=== PATIENT | female | born 1995 | race Caucasian/White ===

== ENCOUNTER → 2023-04-26 10:09 | Outpatient (CLI) | payer OTHER, SELFPAY ==
[2023-04-26 10:55] LABS: COVID-19 CEPHEID 4-PLEX PCR Negative (Negative); Influenza A - CEPHEID Flu A POSITIVE (NEGATIVE); Influenza B - CEPHEID Flu B NEGATIVE (NEGATIVE); Respiratory Syncytial Virus Negative (Negative)
== END ==
PROVIDERS: Visit Provider Physician Assistant
DX: R05.1 Acute cough (principal)
CPT/HCPCS: 0241U

== ENCOUNTER → 2024-01-12 17:18 | Outpatient (CLI) | payer OTHER, SELFPAY ==
--- NOTE | 2024-01-12 17:20 | DI.RAD.S_ITS ---
PROCEDURE: XR ANKLE LT MIN 3V INDICATIONS: Left ankle pain after rolling it 3 weeks ago TECHNIQUE: 3 views of the ankle were acquired. COMPARISON: None. FINDINGS: Bones: No fractures or dislocations. Ankle mortise is normally aligned. No suspicious bony lesions. Soft tissues: Moderate tibiotalar joint effusion. Achilles tendon appears normal. IMPRESSION: No acute bony abnormality. Moderate joint effusion. Internal derangement not excluded. Dictated by: Ezra Bridges M.D. on 01/12/2024 at 17:46 Approved by: Ezra Bridges M.D. on 01/12/2024 at 17:46
== END ==
LOC: RAD 17:20
PROVIDERS: Referring Provider Physician Assistant Medical; Visit Provider Physician Assistant Medical
DX: M25.472 Effusion, left ankle (principal); M25.572 Pain in left ankle and joints of left foot
CPT/HCPCS: 73610

== ENCOUNTER 2024-02-22 11:40 | Emergency (ER) | payer OTHER, SELFPAY ==
[2024-02-22 12:11] VITALS: BP 120/83; PULSE 105; RESP 18; TEMP 37.2; O2SAT 98; BMI 19.4
--- NOTE | 2024-02-22 13:37 | ED_ITS ---
HPI - Ear Problem <Renu Mccall PA-C - Last Filed: 02/22/24 16:48> General Chief complaint: Ear Stated complaint: R Ear pain Time Seen by Provider: 02/22/24 13:36 Source: patient Mode of arrival: Ambulatory History of Present Illness HPI Narrative: Ms. Crow is a pleasant 28-year-old female with no reported past medical history who presents to the emergency department for right ear worsening pain x3 days. Has been contributed to the history. Patient had a cold last week and reports she developed right ear pain and drainage. On Tuesday she was seen at the walk-in clinic and was diagnosed with right otitis externa and was treated with ofloxacin drops. Patient states her symptoms have only worsened since then and she now has pain behind the right ear and a right-sided headache. She reports having decreased appetite and overall not feeling well. Denies fever, chills, cough, sore throat. She has been using the ear drops as prescribed. No history of issues with the right ear. Related Data Previous Rx's Medication Instructions Recorded ofloxacin 0.3 % ear drops 10 drp EAR-RIGHT ONCE 7 days #5 mL 02/20/24 amoxicillin 875 mg-potassium 1 tab PO Q12H 10 days #20 tabs 02/22/24 clavulanate 125 mg tablet Allergies Allergy/AdvReac Type Severity Reaction Status Date / Time No Known Drug Allergies Allergy Verified 02/22/24 12:15 Review of Systems <Renu Mccall PA-C - Last Filed: 02/22/24 16:48> Review of Systems ROS Unobtainable: All systems reviewed & are unremarkable except as noted in HPI and below Patient History <Renu Mccall PA-C - Last Filed: 02/22/24 16:48> Social History Smoking Status: Never smoker Smoking Status: Never smoker Substance Use Type: does not use Exam <Rneu Mccall PA-C - Last Filed: 02/22/24 16:48> Narrative Exam Narrative: GENERAL: 28 year old patient appears stated age. Well-developed patient, in no acute distress. HEAD: Atraumatic. Normocephalic. EYES: Extraocular motions intact. No scleral icterus. No injection or drainage. ENT: Right TM extremely erythematous, thickened. No obvious TM perforation. Mild erythema of right canal. Tenderness to palpation of right mastoid with no overlying erythema or skin changes. Left TM and ear within normal limits. Nose without bleeding, purulent drainage. Throat without erythema, tonsillar hypertrophy or exudate. Airway patent. NECK: Trachea midline. Cervical ROM intact. CARDIOVASCULAR: Regular rate and rhythm. RESPIRATORY: ?Nonlabored respirations. ?Speaking in clear, full sentences. EXTREMITIES: No edema or joint tenderness. BACK: Nontender without deformity or crepitance. No flank tenderness. NEURO: AOx3. ?Clear speech. ?Moves all 4 extremities appropriately. SKIN: No rash or erythema of visible areas Initial Vital Signs Initial Vital Signs: Vital Signs Temperature 99.0 F 02/22/24 12:11 Pulse Rate 105 H 02/22/24 12:11 Respiratory Rate 18 02/22/24 12:11 Blood Pressure 120/83 02/22/24 12:11 Pulse Oximetry 98 02/22/24 12:11 Oxygen Delivery Method Room Air 02/22/24 12:11 <Sam Crawley MD - Last Filed: 02/26/24 14:59> Initial Vital Signs Initial Vital Signs: Vital Signs Temperature 99.0 F 02/22/24 12:11 Pulse Rate 105 H 02/22/24 12:11 Respiratory Rate 18 02/22/24 12:11 Blood Pressure 120/83 02/22/24 12:11 Pulse Oximetry 98 02/22/24 12:11 Oxygen Delivery Method Room Air 02/22/24 12:11 Course <Renu Mccall PA-C - Last Filed: 02/22/24 16:48> Orders Ordered: Discontinued Medications Acetaminophen (Acetaminophen 325 Mg Tablet) 975 mg PO NOW ONE Stop: 02/22/24 13:51 Last Admin: 02/22/24 14:15 Dose: 975 mg Documented By: JOSEPHINE Ampicillin Sodium/Sulbactam (Sodium 3 gm/ Sodium Chloride) 100 mls @ 200 mls/hr IV NOW ONE Stop: 02/22/24 15:48 Last Infusion: 02/22/24 16:39 Dose: Infused Documented By: Admin: 02/22/24 16:05 Dose: 200 mls/hr Documented By: JOSEPHINE Sodium Chloride (Normal Saline 0.9%) 500 mls @ 500 mls/hr IV BOLUS ONE Stop: 02/22/24 16:46 Last Infusion: 02/22/24 16:39 Dose: Infused Documented By: Admin: 02/22/24 16:05 Dose: 500 mls/hr Documented By: JOSEPHINE Consultations Consultation #1: Discussed case with ENT on-call Dr. Mullins. Discussed the patient's physical exam and her CT and blood work findings. Dr. Mullins also independently reviewed the patient's imaging. Reports that pockets of air are present and he does not see any bony erosions which are reassuring. It is evident that she has a middle ear infection. He recommends 1 time dose of IV Unasyn and then we will place the patient on Augmentin b.i.d. times 10 days and have her follow up in the clinic with Dr. Mullins. Very strict return precautions were discussed. Time: 15:35 Vital Signs Vital signs: Vital Signs - 8 hr 02/22/24 12:11 02/22/24 15:47 Temperature 99.0 F Pulse Rate 105 H 104 H Respiratory Rate 18 20 Blood Pressure 120/83 108/67 Pulse Oximetry 98 100 Oxygen Delivery Method Room Air Room Air <Sam Crawley MD - Last Filed: 02/26/24 14:59> Orders Ordered: Discontinued Medications Acetaminophen (Acetaminophen 325 Mg Tablet) 975 mg PO NOW ONE Stop: 02/22/24 13:51 Last Admin: 02/22/24 14:15 Dose: 975 mg Documented By: JOSEPHINE Ampicillin Sodium/Sulbactam (Sodium 3 gm/ Sodium Chloride) 100 mls @ 200 mls/hr IV NOW ONE Stop: 02/22/24 15:48 Last Infusion: 02/22/24 16:39 Dose: Infused Documented By: Admin: 02/22/24 16:05 Dose: 200 mls/hr Documented By: JOSEPHINE Sodium Chloride (Normal Saline 0.9%) 500 mls @ 500 mls/hr IV BOLUS ONE Stop: 02/22/24 16:46 Last Infusion: 02/22/24 16:39 Dose: Infused Documented By: Admin: 02/22/24 16:05 Dose: 500 mls/hr Documented By: JOSEPHINE Vital Signs Vital signs: Vital Signs - 8 hr 02/22/24 12:11 02/22/24 15:47 Temperature 99.0 F Pulse Rate 105 H 104 H Respiratory Rate 18 20 Blood Pressure 120/83 108/67 Pulse Oximetry 98 100 Oxygen Delivery Method Room Air Room Air Medical Decision Making <Renu Mccall PA-C - Last Filed: 02/22/24 16:48> Medical Records Medical records reviewed: Yes I reviewed the patient's medical records. Medical records narrative: 02/20/2024 walk-in clinic visit diagnosed with right otitis media, prescribed ofloxacin drops. Lab Data 02/22/24 14:24 02/22/24 14:24 Labs: Lab Results 02/22/24 Range/Units 14:24 WBC 13.2 H (4.5-11.0) X10^3/uL RBC 5.34 H (4.0-5.2) X10^6/uL Hgb 15.1 (12.0-16.0) g/dL Hct 44.8 (36-46) % MCV 83.9 (80-100) fL MCH 28.3 (26-34) PG MCHC 33.8 (30-36) % RDW 12.5 (11.6-14.8) % Plt Count 348 (150-400) X10^3/uL Neut % (Auto) 80.9 H (50-75) % Lymph % (Auto) 10.2 L (25-40) % [place] % (Auto) 8.3 (3-14) % Eos % (Auto) 0.2 L (2-4) % Baso % (Auto) 0.4 (0-2) % Neut # (Auto) 09037 H (6971-6618) /uL Lymph # (Auto) 1300 (9254-8729) /uL [place] # (Auto) 1100 H (0-900) /uL Eos # (Auto) 0 (0-450) /uL Baso # (Auto) 0 (0-100) /uL Sodium 139 (137-145) mmol/L Potassium 4.0 (3.4-5.1) mmol/L Chloride 101 (98-107) mmol/L Carbon Dioxide 26 (22-32) mmol/L BUN 9 (7-17) mg/dL Creatinine 0.71 (0.52-1.04) mg/dL Estimated GFR > 60 (>60) mL/min BUN/Creatinine Ratio 12.7 (6-22) Glucose 102 H (70-100) mg/dL Calcium 10.0 (8.4-10.2) mg/dL Total Bilirubin 0.8 (0.2-1.3) mg/dL AST 24 (14-36) IU/L ALT 19 (<35) IU/L Alkaline Phosphatase 71 (38-126) U/L Total Protein 8.3 H (6.3-8.2) g/dL Albumin 4.8 (3.5-5.0) g/dL Globulin 3.5 (1.7-4.1) g/dL Albumin/Globulin Ratio 1.4 (1.0-2.8) Point of Care Testing Test Results Negative Point of care testing: Point of Care Testing Test Results Negative Imaging Data Head/Mastoid CT: Radiologist's Impression: PROCEDURE: CT MASTOID TEMPORAL INDICATIONS: R mastoid tenderness with AOM COMPARISON: None. TECHNIQUE: Noncontrast 0.6 mm thick axial sections acquired through the temporal bones, with coronal reformats FINDINGS: Image quality: Excellent. RIGHT: External auditory canal: Canal has a normal appearance. Middle ear: There is moderate abnormal fluid within the right middle ear cavity. The tympanic membrane appears retracted. No definite erosion of the left middle ear ossicles can be seen. Inner ear: Inner ear is normally formed and appears unremarkable. Facial nerve appears normal throughout is course. Mastoids: There is at least moderate abnormal fluid within the right mastoid air cells. LEFT: External auditory canal: Canal has a normal appearance. Middle ear: The middle ear structures, including the ossicles and tympanic membrane, appear normal. No abnormal fluid or soft tissue density. Inner ear: Inner ear is normally formed and appears unremarkable. Facial nerve appears normal throughout its course. Mastoids: Mastoid air cells are clear. MISCELLANEOUS: Visualized surrounding bones appear unremarkable. Visualized intracranial structures, including the cerebellopontine angle cisterns, appear normal. IMPRESSION: Moderate abnormal fluid seen within the right mastoid air cells. Abnormal fluid within the right middle ear cavity, with associated retraction of the right tympanic membrane. MDM Narrative Medical decision making narrative: Otherwise healthy 28-year-old female presents to the emergency department for continuing right ear pain after being diagnosed with and treated for right otitis externa on Tuesday. Physical exam reveals an opacified and erythematous right TM consistent with acute otitis media. She also has tenderness to palpation of the right mastoid. Differential diagnosis includes but is not limited to mastoiditis, acute otitis media, sinusitis, acute otitis externa, referred pain, tension headache, etc.. After shared decision-making with the patient, we will obtain CT mastoid without IV contrast in addition to CBC and CMP. We will treat pain with Tylenol. We will obtain baseline test. Patient states she is currently trying to get . Workup reveals head/mastoid CT revealing moderate abnormal fluid seen within the right mastoid air cells. She also has abnormal fluid within the right middle ear cavity with associated retraction of the right tympanic membrane. Labs reveal elevated WBC count of 13.2. Normal renal function. No electrolyte abnormalities. Case discussed with ENT on-call. Patient's symptoms and CT scan seem most consistent with an acute otitis media. We will treat with 1 dose of IV Unasyn and send the patient home on oral Augmentin as discussed with ENT Dr. Mullins. Advised she continue her ofloxacin drops. If patient has any worsening of symptoms or does not improve, she needs to return to the ER immediately. Provided her with ENT follow up. Advised supportive care, pain control Tylenol Motrin, all questions answered, pt Non-toxic, patient stable for discharge home. <Sam Crawley MD - Last Filed: 02/26/24 14:59> Lab Data Labs: Lab Results 02/22/24 Range/Units 14:24 WBC 13.2 H (4.5-11.0) X10^3/uL RBC 5.34 H (4.0-5.2) X10^6/uL Hgb 15.1 (12.0-16.0) g/dL Hct 44.8 (36-46) % MCV 83.9 (80-100) fL MCH 28.3 (26-34) PG MCHC 33.8 (30-36) % RDW 12.5 (11.6-14.8) % Plt Count 348 (150-400) X10^3/uL Neut % (Auto) 80.9 H (50-75) % Lymph % (Auto) 10.2 L (25-40) % [place] % (Auto) 8.3 (3-14) % Eos % (Auto) 0.2 L (2-4) % Baso % (Auto) 0.4 (0-2) % Neut # (Auto) 21195 H (9010-8950) /uL Lymph # (Auto) 1300 (5802-8568) /uL [place] # (Auto) 1100 H (0-900) /uL Eos # (Auto) 0 (0-450) /uL Baso # (Auto) 0 (0-100) /uL Sodium 139 (137-145) mmol/L Potassium 4.0 (3.4-5.1) mmol/L Chloride 101 (98-107) mmol/L Carbon Dioxide 26 (22-32) mmol/L BUN 9 (7-17) mg/dL Creatinine 0.71 (0.52-1.04) mg/dL Estimated GFR > 60 (>60) mL/min BUN/Creatinine Ratio 12.7 (6-22) Glucose 102 H (70-100) mg/dL Calcium 10.0 (8.4-10.2) mg/dL Total Bilirubin 0.8 (0.2-1.3) mg/dL AST 24 (14-36) IU/L ALT 19 (<35) IU/L Alkaline Phosphatase 71 (38-126) U/L Total Protein 8.3 H (6.3-8.2) g/dL Albumin 4.8 (3.5-5.0) g/dL Globulin 3.5 (1.7-4.1) g/dL Albumin/Globulin Ratio 1.4 (1.0-2.8) Point of Care Testing Test Results Negative Point of care testing: Point of Care Testing Test Results Negative Discharge Plan Departure Patient Disposition: Home Clinical Impression: Acute pain of right ear Otitis media Qualifiers: Otitis media type: unspecified Chronicity: acute Qualified Code(s): H66.90 - Otitis media, unspecified, unspecified ear Instructions: DI for Otitis Media (Middle Ear Infection)-Child Activity Restrictions/Additional Instructions: Today you were evaluated for right ear pain and found to have a right ear infection. We obtained a CT scan which shows some fluid in your mastoid bone. You were given a dose of IV antibiotics and you were also prescribed 10 days of oral antibiotics. Today I discussed her case with ears Nose Throat specialist Dr. Mullins. Please call to schedule an appointment with Dr. Renae Mullins for follow up at [facility] ENT: [phone]. If you do not have any improvement in symptoms within the next 1-2 days, or you develop any worsening of symptoms, return to the ER immediately. Please rest, hydrate, use Tylenol and ibuprofen together or alternating for pain. Continue using your ofloxacin eardrops. Please follow up with your primary care doctor within the next 2-3 days. Return to the emergency department for any new or worsening symptoms, or any other concerns. Thank you for letting me participate in your care, Renu Mccall PA-C Prescriptions: New amoxicillin-pot clavulanate 875-125 mg tablet 1 tab PO Q12H 10 Days Qty: 20 0RF No Action ofloxacin 0.3 % drops 10 drp EAR-RIGHT ONCE 7 Days Qty: 5 0RF Referrals: Drew Mullins MD [Physician] - (ER follow-up // R ear infection) Stand Alone Forms: Patient Portal/API/Survey, Work Release Note ED Sign-out <Sam Crawley MD - Last Filed: 02/26/24 14:59> Cosign ED Attending Costienature Attestation: I was immediately available in the department for consultation. ?This documentation has been reviewed and I agree with assessment and plan. Supervised by Sam Crawley MD
--- NOTE | 2024-02-22 13:49 | DI.CT.S_ITS ---
PROCEDURE: CT MASTOID TEMPORAL INDICATIONS: R mastoid tenderness with AOM COMPARISON: None. TECHNIQUE: Noncontrast 0.6 mm thick axial sections acquired through the temporal bones, with coronal reformats FINDINGS: Image quality: Excellent. RIGHT: External auditory canal: Canal has a normal appearance. Middle ear: There is moderate abnormal fluid within the right middle ear cavity. The tympanic membrane appears retracted. No definite erosion of the left middle ear ossicles can be seen. Inner ear: Inner ear is normally formed and appears unremarkable. Facial nerve appears normal throughout is course. Mastoids: There is at least moderate abnormal fluid within the right mastoid air cells. LEFT: External auditory canal: Canal has a normal appearance. Middle ear: The middle ear structures, including the ossicles and tympanic membrane, appear normal. No abnormal fluid or soft tissue density. Inner ear: Inner ear is normally formed and appears unremarkable. Facial nerve appears normal throughout its course. Mastoids: Mastoid air cells are clear. MISCELLANEOUS: Visualized surrounding bones appear unremarkable. Visualized intracranial structures, including the cerebellopontine angle cisterns, appear normal. IMPRESSION: Moderate abnormal fluid seen within the right mastoid air cells. Abnormal fluid within the right middle ear cavity, with associated retraction of the right tympanic membrane. Dictated by: Sundar Holland M.D. on 02/22/2024 at 13:39 Approved by: Sundar Holland M.D. on 02/22/2024 at 13:41
[2024-02-22] MEDS: ACETAMINOPHEN 325 MG TABLET 975 MG PO (14:15)
[2024-02-22 14:35] LABS: Add Manual Diff / Slide Review NO; Basophils Absolute Auto 0 /uL (0-100); Basophils Percent Auto 0.4 % (0-2); Eosinophils Absolute Auto 0 /uL (0-450); Eosinophils Percent Auto 0.2 % (2-4); Hematocrit 44.8 % (36-46); Hemoglobin 15.1 g/dL (12.0-16.0); Lymphocytes Absolute Auto 1300 /uL (1100-4500); Lymphocytes Percent Auto 10.2 % (25-40); Mean Corpuscular HGB Conc 33.8 % (30-36); Mean Corpuscular Hemoglobin 28.3 PG (26-34); Mean Corpuscular Volume 83.9 fL (80-100); Monocytes Absolute Auto 1100 /uL (0-900); Monocytes Percent Auto 8.3 % (3-14); Neutrophils Absolute Auto 10700 /uL (1500-7000); Neutrophils Percent Auto 80.9 % (50-75); Platelet Count 348 X10^3/uL (150-400); Red Blood Cell Count 5.34 X10^6/uL (4.0-5.2); Red Cell Distribution Width 12.5 % (11.6-14.8); White Blood Cell Count 13.2 X10^3/uL (4.5-11.0)
[2024-02-22 14:49] LABS: Alanine Aminotransferase 19 IU/L (<35); Albumin 4.8 g/dL (3.5-5.0); Albumin Globulin Ratio 1.4 (1.0-2.8); Alkaline Phosphatase 71 U/L (38-126); Aspartate Aminotransferase 24 IU/L (14-36); BUN Creatinine Ratio 12.7 (6-22); Bilirubin Total 0.8 mg/dL (0.2-1.3); Blood Urea Nitrogen 9 mg/dL (7-17); Carbon Dioxide 26 mmol/L (22-32); Chloride 101 mmol/L (98-107); Estimated Glomerular Filt Rate > 60 mL/min (>60); Globulin 3.5 g/dL (1.7-4.1); Glucose 102 mg/dL (70-100); HEMOLYSIS < 15 (0-50); Sodium 139 mmol/L (137-145); Total Protein 8.3 g/dL (6.3-8.2)
[2024-02-22 15:47] VITALS: BP 108/67; PULSE 104; RESP 20; O2SAT 100
[2024-02-22] MEDS: AMPICILLIN/SULBACTAM 3 GM 3 GM in SODIUM CHLORIDE 0.9% 100 ML IV (16:05)
[2024-02-22] MEDS: SODIUM CHLORIDE 0.9% 500 ML IV (16:05)
== END 2024-02-22 17:04 | disposition home or self-care (01) ==
PROVIDERS: Emergency Provider Physician Assistant
DX: H66.91 Otitis media, unspecified, right ear (principal); H92.01 Otalgia, right ear
CPT/HCPCS: 70480; 80053; 81025; 85025; 96365; 99284; J0295

== ENCOUNTER → 2024-04-18 09:31 | Outpatient (CLI) | payer OTHER, SELFPAY ==
[2024-04-18 10:37] LABS: Add Manual Diff / Slide Review NO; Basophils Absolute Auto 0 /uL (0-100); Basophils Percent Auto 0.5 % (0-2); Eosinophils Absolute Auto 0 /uL (0-450); Eosinophils Percent Auto 0.3 % (2-4); Hematocrit 43.9 % (36-46); Hemoglobin 14.9 g/dL (12.0-16.0); Lymphocytes Absolute Auto 1000 /uL (1100-4500); Lymphocytes Percent Auto 16.3 % (25-40); Mean Corpuscular HGB Conc 33.9 % (30-36); Mean Corpuscular Hemoglobin 28.6 PG (26-34); Mean Corpuscular Volume 84.5 fL (80-100); Monocytes Absolute Auto 600 /uL (0-900); Monocytes Percent Auto 10.3 % (3-14); Neutrophils Absolute Auto 4600 /uL (1500-7000); Neutrophils Percent Auto 72.6 % (50-75); Platelet Count 146 X10^3/uL (150-400); Red Blood Cell Count 5.19 X10^6/uL (4.0-5.2); White Blood Cell Count 6.3 X10^3/uL (4.5-11.0)
[2024-04-18 10:42] LABS: Natera Collection Specimen Collected
[2024-04-18 11:08] LABS: Free T4, Direct Thyroxine 1.08 ng/dL (0.78-2.19); Vitamin D 25 Hydroxy (D3) 39.7 ng/mL (30.0-100.0)
[2024-04-18 11:22] LABS: Thyroid Stimulating Hormone 0.813 uIU/mL (0.47-4.68)
[2024-04-19 05:11] LABS: RPR Screen Non Reactive (Non Reactive)
[2024-04-19 08:16] LABS: Varicella IgG Antibody Non Reactive (Non Reactive)
[2024-04-19 16:53] LABS: Hepatitis B Surface Antigen NEGATIVE s/c (NEGATIVE); Rubella Antibody IgG 27.2 IU/mL (>15)
[2024-04-19 17:13] LABS: HIV 1 & 2 Ab/Ag 4th Gen Combo NEGATIVE (NEGATIVE); Hep C Virus Ab w/Reflex Quant NEGATIVE s/c (NEGATIVE)
== END ==
PROVIDERS: Referring Provider Specialist; Visit Provider Specialist
DX: Z34.01 Encounter for supervision of normal first pregnancy, first trimester (principal); Z3A.10 10 weeks gestation of pregnancy
CPT/HCPCS: 36415; 80055; 82306; 84439; 84443; 86787; 86803; 86850; 86900; 86901; 87389